=== PATIENT | female | born 1990 | race Caucasian/White ===

== ENCOUNTER 2019-01-18 15:26 | Emergency (ER) | payer MEDICAID ==
[~2019-01-18] VITALS: Ht 157.5 cm; Wt 82.0 kg
[2019-01-18] MEDS ORDERED: SODIUM CHLORIDE 0.9% 1,000 ML IV ONE (15:50)
[2019-01-18 16:16] LABS: BASOPHILS % 0.2 % (0.0-2.0); HEMATOCRIT. 37.5 % (36.0-48.0); HEMOGLOBIN. 12.8 g/dL (12.0-16.0); LYMPHOCYTES % 25.1 % (20.0-50.0); MEAN CORPUSCULAR HEMOGLOBIN 28.3 pg (28.0-32.0); MEAN CORPUSCULAR VOLUME 82.9 fL (81.0-99.0); MEAN PLATELET VOLUME 8.1 fl (7.4-10.4); MONOCYTES % 5.9 % (2.0-8.0); NEUTROPHILS % 64.8 % (40.0-76.0); PLATELET 290 x1000/uL (130-400); RED BLOOD CELL COUNT 4.53 mill/uL (4.2-5.4); RED CELL DISTRIBUTION WIDTH 13.9 % (11.6-14.6)
[2019-01-18 16:18] LABS: HCG SCREEN NEGATIVE
[2019-01-18 16:20] LABS: CHLORIDE 111 mEq/L (98-107)
[2019-01-18 16:21] LABS: INR 1.1; PROTHROMBIN TIME 11.2 sec (9.6-11.0)
[2019-01-18 17:34] LABS: CLARITY URINE CLEAR (CLEAR); COLOR URINE YELLOW (YELLOW); KETONES URINE NEGATIVE (NEGATIVE); LEUKOCYTE ESTERASE URINE TRACE (NEGATIVE); NITRITE URINE NEGATIVE (NEGATIVE); OCCULT BLOOD URINE TRACE (NEGATIVE); PH URINE 5.5 (4.5-8.0); PROTEIN URINE NEGATIVE (NEGATIVE); SPECIFIC GRAVITY URINE 1.007 (1.005-1.030); UROBILINOGEN URINE 0.2 E.U./dL (0.2-1.0)
[2019-01-18] MEDS ORDERED: IBUPROFEN 400MG TABLET PO ONE (19:00)
[2019-01-18 19:24] VITALS: BP 128/79
[2019-01-18] MEDS ORDERED: IOHEXOL-350 100 ML BOTTLE ONE (19:38)
== END 2019-01-18 19:20 | disposition home or self-care (01) ==
LOC: ER 15:26
DX: R42 Dizziness and giddiness (principal); G43.909 Migraine, unspecified, not intractable, without status migrainosus; R11.0 Nausea; Z98.890 Other specified postprocedural states
CPT/HCPCS: 36415; 70496; 70498; 80053; 81003; 84484; 84703; 85025; 85610; 93005; 96360; 96361; 99284; J7030; Q9967

== ENCOUNTER 2019-11-07 13:58 | Inpatient (IN) | payer OTHER, MEDICAID ==
[~2019-11-07] VITALS: Ht 149.9 cm; Wt 78.0 kg
[2019-11-07] MEDS ORDERED: MORPHINE SULFATE 4 MG/ML CPJ (NOT FOR IM USE) IV ONE ×2 (15:00→18:15)
[2019-11-07 15:21] LABS: BASOPHILS % 0.5 % (0.0-2.0); EOSINOPHILS % 3.8 % (0.0-5.0); HEMATOCRIT. 38.3 % (36.0-48.0); LYMPHOCYTES % 23.7 % (20.0-50.0); MEAN CORPUSCULAR HEMOGLOBIN 28.1 pg (28.0-32.0); MEAN CORPUSCULAR VOLUME 82.7 fL (81.0-99.0); MEAN PLATELET VOLUME 8.2 fl (7.4-10.4); MONOCYTES % 7.4 % (2.0-8.0); NEUTROPHILS % 64.6 % (40.0-76.0); PLATELET 257 x1000/uL (130-400); RED BLOOD CELL COUNT 4.63 mill/uL (4.2-5.4); RED CELL DISTRIBUTION WIDTH 13.9 % (11.6-14.6)
[2019-11-07 15:28] LABS: CHLORIDE 109 mEq/L (98-107)
[2019-11-07] MEDS ORDERED: IOHEXOL-350 100 ML BOTTLE ONE (17:34)
[2019-11-07] MEDS ORDERED: CLONIDINE 0.1MG TABLET PO PRN (22:30)
[2019-11-07] MEDS ORDERED: ONDANSETRON HCL 4MG/2ML INJ IV PRN (22:30)
[2019-11-07] MEDS ORDERED: ZOLPIDEM TARTRATE 5MG TABLET PO PRN (22:30)
[2019-11-07] MEDS ORDERED: ACETAMINOPHEN 325MG TABLET PO PRN ×2 (22:30)
[2019-11-07 23:20] VITALS: BP_SYST 102; BP_SYST 138; BP_DIAS 69
[2019-11-08] MEDS ORDERED: MECL-159 PO (00:23)
[2019-11-08] MEDS ORDERED: KETOROLAC 30MG/ML VIAL IV PRN (02:15)
[2019-11-08 04:00] VITALS: BP 118/65
[2019-11-08] MEDS: SODIUM CHLORIDE 0.9% INJ 3ML FLUSH IVF SCH ×3 (06:22→22:10)
[2019-11-08] MEDS: MORPHINE SULFATE 4 MG/ML CPJ (NOT FOR IM USE) IV PRN ×2 (10:14→16:53)
[2019-11-08 13:14] VITALS: BP 107/58
[2019-11-08 15:26] VITALS: BP 124/59
[2019-11-08 20:00] VITALS: BP 117/70
[2019-11-08] MEDS: KETOROLAC 30MG/ML VIAL IV PRN (21:23)
[2019-11-09] VITALS: BP 110/65
[2019-11-09 04:00] VITALS: BP 106/61
[2019-11-09] MEDS: SODIUM CHLORIDE 0.9% INJ 3ML FLUSH IVF SCH ×3 (06:51→21:30)
[2019-11-09 06:56] LABS: CHLORIDE 106 mEq/L (98-107)
[2019-11-09 07:16] LABS: BASOPHILS % 0.3 % (0.0-2.0); EOSINOPHILS % 7.6 % (0.0-5.0); HEMATOCRIT. 39.7 % (36.0-48.0); HEMOGLOBIN. 13.6 g/dL (12.0-16.0); LYMPHOCYTES % 25.2 % (20.0-50.0); MEAN CORPUSCULAR HEMOGLOBIN 28.3 pg (28.0-32.0); MEAN CORPUSCULAR VOLUME 82.5 fL (81.0-99.0); MEAN PLATELET VOLUME 8.3 fl (7.4-10.4); MONOCYTES % 7.7 % (2.0-8.0); NEUTROPHILS % 59.2 % (40.0-76.0); PLATELET 268 x1000/uL (130-400); RED BLOOD CELL COUNT 4.82 mill/uL (4.2-5.4); RED CELL DISTRIBUTION WIDTH 13.8 % (11.6-14.6)
[2019-11-09 08:00] VITALS: BP 117/70
[2019-11-09] MEDS: MORPHINE SULFATE 4 MG/ML CPJ (NOT FOR IM USE) IV PRN ×2 (09:04→17:03)
[2019-11-09 12:00] VITALS: BP 107/66
[2019-11-09] MEDS: DIPHENHYDRAMINE 50MG/ML VIAL IV PRN (12:59)
[2019-11-09 16:00] VITALS: BP 106/68
[2019-11-09 20:00] VITALS: BP 129/75
[2019-11-09] MEDS: KETOROLAC 30MG/ML VIAL IV PRN (22:56)
[2019-11-10] VITALS: BP 116/65
[2019-11-10 04:00] VITALS: BP 119/64
[2019-11-10] MEDS: SODIUM CHLORIDE 0.9% INJ 3ML FLUSH IVF SCH ×3 (05:00→21:55)
[2019-11-10] MEDS: MORPHINE SULFATE 4 MG/ML CPJ (NOT FOR IM USE) IV PRN ×3 (05:01→21:56)
[2019-11-10 08:00] VITALS: BP 105/57
[2019-11-10] MEDS: DIPHENHYDRAMINE 50MG/ML VIAL IV PRN ×2 (08:42→18:49)
[2019-11-10 12:00] VITALS: BP 107/63
[2019-11-10] MEDS: KETOROLAC 30MG/ML VIAL IV PRN (15:43)
[2019-11-10 16:00] VITALS: BP 109/68
[2019-11-10] MEDS: MECLIZINE 25MG TABLET PO PRN (18:49)
[2019-11-10] MEDS ORDERED: IBUPROFEN 600MG TABLET PO PRN (19:45)
[2019-11-10 20:00] VITALS: BP 113/75
[2019-11-11] VITALS (7 sets, daily range): BP systolic 104–127; BP diastolic 61–77
[2019-11-11] MEDS: DIPHENHYDRAMINE 50MG/ML VIAL IV PRN ×2 (03:00→21:32)
[2019-11-11] MEDS: MECLIZINE 25MG TABLET PO PRN ×2 (03:00→21:32)
[2019-11-11] MEDS: SODIUM CHLORIDE 0.9% INJ 3ML FLUSH IVF SCH ×3 (05:25→21:03)
[2019-11-11] MEDS: MORPHINE SULFATE 4 MG/ML CPJ (NOT FOR IM USE) IV PRN (10:10)
[2019-11-11] MEDS: KETOROLAC 30MG/ML VIAL IV PRN (15:01)
[2019-11-11] MEDS ORDERED: REGADENOSON 0.4 MG/5 ML IV NR (18:15)
[2019-11-11 20:01] LABS: *AMPHETAMINES SCREEN URINE NEGATIVE (NEGATIVE); *BARBITURATES SCREEN URINE NEGATIVE (NEGATIVE); *BENZODIAZEPINES SCREEN URINE NEGATIVE (NEGATIVE); *COCAINE SCREEN URINE NEGATIVE (NEGATIVE); METHADONE URINE SCREEN NEGATIVE (NEGATIVE)
[2019-11-11 20:02] LABS: CANNABINOID URINE SCREEN NEGATIVE (NEGATIVE); PHENCYCLIDINE URINE SCREEN NEGATIVE (NEGATIVE)
[2019-11-11 20:04] LABS: OPIATES URINE SCREEN PRESUMTIVE POSITIVE (NEGATIVE)
[2019-11-12] VITALS: BP 107/54
[2019-11-12 03:44] VITALS: BP 125/76
[2019-11-12] MEDS: MORPHINE SULFATE 4 MG/ML CPJ (NOT FOR IM USE) IV PRN ×2 (03:46→23:12)
[2019-11-12] MEDS: SODIUM CHLORIDE 0.9% INJ 3ML FLUSH IVF SCH ×3 (05:37→23:11)
[2019-11-12 07:04] LABS: HCG SCREEN NEGATIVE
[2019-11-12 08:00] VITALS: BP 112/70
[2019-11-12] MEDS ORDERED: REGADENOSON 0.4 MG/5 ML IV NR (09:30)
[2019-11-12] MEDS: MECLIZINE 25MG TABLET PO PRN ×2 (10:06→20:29)
[2019-11-12] MEDS: DIPHENHYDRAMINE 50MG/ML VIAL IV PRN ×3 (10:06→20:29)
[2019-11-12 10:57] LABS: BASOPHILS % 0.9 % (0.0-2.0); EOSINOPHILS % 6.1 % (0.0-5.0); HEMATOCRIT. 40.2 % (36.0-48.0); HEMOGLOBIN. 13.7 g/dL (12.0-16.0); LYMPHOCYTES % 23.8 % (20.0-50.0); MEAN CORPUSCULAR HEMOGLOBIN 28.2 pg (28.0-32.0); MEAN CORPUSCULAR VOLUME 82.9 fL (81.0-99.0); MEAN PLATELET VOLUME 8.3 fl (7.4-10.4); MONOCYTES % 6.2 % (2.0-8.0); PLATELET 268 x1000/uL (130-400); RED BLOOD CELL COUNT 4.85 mill/uL (4.2-5.4); RED CELL DISTRIBUTION WIDTH 14.2 % (11.6-14.6)
[2019-11-12 11:11] LABS: CHLORIDE 111 mEq/L (98-107)
[2019-11-12 12:00] VITALS: BP 95/76
[2019-11-12 16:00] VITALS: BP 123/67
[2019-11-12 20:00] VITALS: BP 108/75
[2019-11-13] VITALS: BP 115/67
[2019-11-13 04:00] VITALS: BP 109/60
[2019-11-13] MEDS: DIPHENHYDRAMINE 50MG/ML VIAL IV PRN ×2 (05:42→21:51)
[2019-11-13] MEDS: SODIUM CHLORIDE 0.9% INJ 3ML FLUSH IVF SCH ×3 (05:42→21:51)
[2019-11-13 06:26] LABS: BASOPHILS % 0.4 % (0.0-2.0); EOSINOPHILS % 5.4 % (0.0-5.0); HEMATOCRIT. 38.3 % (36.0-48.0); LYMPHOCYTES % 25.7 % (20.0-50.0); MEAN CORPUSCULAR HEMOGLOBIN 28.2 pg (28.0-32.0); MEAN PLATELET VOLUME 8.9 fl (7.4-10.4); MONOCYTES % 6.4 % (2.0-8.0); NEUTROPHILS % 62.1 % (40.0-76.0); PLATELET 263 x1000/uL (130-400); RED BLOOD CELL COUNT 4.61 mill/uL (4.2-5.4); RED CELL DISTRIBUTION WIDTH 14.2 % (11.6-14.6)
[2019-11-13 06:53] LABS: CHLORIDE 109 mEq/L (98-107)
[2019-11-13 08:00] VITALS: BP 104/66
[2019-11-13] MEDS ORDERED: POTASSIUM CHLORIDE 20MEQ TABLET SR PO NR (11:30)
[2019-11-13 12:00] VITALS: BP 102/58
[2019-11-13] MEDS: MORPHINE SULFATE 4 MG/ML CPJ (NOT FOR IM USE) IV PRN (12:26)
[2019-11-13 16:00] VITALS: BP 103/46
[2019-11-13] MEDS: MECLIZINE 25MG TABLET PO PRN (21:51)
[2019-11-14] VITALS: BP 108/61
[2019-11-14] MEDS: MORPHINE SULFATE 4 MG/ML CPJ (NOT FOR IM USE) IV PRN (03:59)
[2019-11-14 04:00] VITALS: BP 112/65
[2019-11-14] MEDS: SODIUM CHLORIDE 0.9% INJ 3ML FLUSH IVF SCH ×2 (05:13→11:15)
[2019-11-14 05:36] LABS: BASOPHILS % 0.5 % (0.0-2.0); EOSINOPHILS % 4.4 % (0.0-5.0); HEMATOCRIT. 40.1 % (36.0-48.0); HEMOGLOBIN. 13.6 g/dL (12.0-16.0); LYMPHOCYTES % 20.9 % (20.0-50.0); MEAN CORPUSCULAR HEMOGLOBIN 28.1 pg (28.0-32.0); MEAN CORPUSCULAR VOLUME 82.7 fL (81.0-99.0); MEAN PLATELET VOLUME 8.7 fl (7.4-10.4); NEUTROPHILS % 68.2 % (40.0-76.0); PLATELET 262 x1000/uL (130-400); RED BLOOD CELL COUNT 4.85 mill/uL (4.2-5.4); RED CELL DISTRIBUTION WIDTH 14.1 % (11.6-14.6)
[2019-11-14 05:48] LABS: CHLORIDE 110 mEq/L (98-107)
[2019-11-14] MEDS ORDERED: REGADENOSON 0.4 MG/5 ML IV ONE ×2 (06:00→08:26)
[2019-11-14 08:00] VITALS: BP 121/76
[2019-11-14] MEDS: MECLIZINE 25MG TABLET PO PRN (11:13)
[2019-11-14] MEDS: DIPHENHYDRAMINE 50MG/ML VIAL IV PRN (11:14)
[2019-11-14 12:20] VITALS: BP 111/69
[2019-11-14 13:26] VITALS: BP 110/74
== END 2019-11-14 14:50 | disposition home or self-care (01) | DRG 313 ==
LOC: ER 14:21 → 7WST 20:31 → EDBEDREQ 21:37 → ENRESERV 21:42 → 6WST 11-13 04:18
PROVIDERS: ADMIT Internal Medicine; ATTEND Internal Medicine
DX: R07.89 Other chest pain (principal); J45.909 Unspecified asthma, uncomplicated; D72.829 Elevated white blood cell count, unspecified; R42 Dizziness and giddiness; Z20.828 Contact with and (suspected) exposure to other viral communicable diseases; I08.0 Rheumatic disorders of both mitral and aortic valves; G43.909 Migraine, unspecified, not intractable, without status migrainosus; Z88.6 Allergy status to analgesic agent
CPT/HCPCS: 36415; 71045; 71275; 78452; 80048; 80053; 80305; 83880; 84484; 84703; 85025; 93005; 93017; 93306; 99285; A9500; J1200; J1885; J2270; J2785; J8597; Q9967; U0003-CS

== ENCOUNTER 2020-08-29 13:32 | Emergency (ER) | payer BC, MEDICAID ==
[~2020-08-29] VITALS: Ht 162.6 cm; Wt 78.0 kg
[~2020-08-29 13:32] MED LIST: MECL-159 PO
[2020-08-29] MEDS ORDERED: KETOROLAC 30MG/ML VIAL IV STA (13:43)
[2020-08-29] MEDS ORDERED: ONDANSETRON HCL 4MG/2ML INJ IV STA (13:43)
[2020-08-29] MEDS ORDERED: MECLIZINE 25MG TABLET PO ONE (13:45)
[2020-08-29] MEDS ORDERED: SODIUM CHLORIDE 0.9% 1,000 ML IV ONE (13:45)
[2020-08-29 14:35] LABS: BASOPHILS % 0.4 % (0.0-2.0); EOSINOPHILS % 4.9 % (0.0-5.0); HEMATOCRIT. 39.6 % (36.0-48.0); MEAN CORPUSCULAR HEMOGLOBIN 26.8 pg (28.0-32.0); MEAN CORPUSCULAR VOLUME 81.8 fL (81.0-99.0); MEAN PLATELET VOLUME 8.2 fl (7.4-10.4); MONOCYTES % 6.7 % (2.0-8.0); PLATELET 299 x1000/uL (130-400); RED BLOOD CELL COUNT 4.83 mill/uL (4.2-5.4); RED CELL DISTRIBUTION WIDTH 13.3 % (11.6-14.6)
[2020-08-29 14:39] LABS: CHLORIDE 107 mEq/L (98-107)
[2020-08-29 15:01] LABS: CLARITY URINE CLEAR (CLEAR); COLOR URINE YELLOW (YELLOW); KETONES URINE NEGATIVE (NEGATIVE); LEUKOCYTE ESTERASE URINE TRACE (NEGATIVE); NITRITE URINE NEGATIVE (NEGATIVE); OCCULT BLOOD URINE NEGATIVE (NEGATIVE); PH URINE 5.5 (4.5-8.0); PROTEIN URINE NEGATIVE (NEGATIVE); SPECIFIC GRAVITY URINE 1.006 (1.005-1.030); UROBILINOGEN URINE 0.2 E.U./dL (0.2-1.0)
[2020-08-29] MEDS ORDERED: ACETAMINOPHEN 325MG TABLET PO ONE (17:00)
[2020-08-29] MEDS ORDERED: SUMATRIPTAN SUCCINATE 6MG/0.5ML VIAL SUBCUT ONE (17:00)
[2020-08-29] MEDS ORDERED: METO-293 PO (17:36)
[2020-08-29] MEDS ORDERED: MECL-159 PO (17:36)
[2020-08-29 18:00] VITALS: BP 129/68
== END 2020-08-29 18:00 | disposition home or self-care (01) ==
LOC: ER 13:32
DX: H81.399 Other peripheral vertigo, unspecified ear (principal); G43.909 Migraine, unspecified, not intractable, without status migrainosus; Z88.6 Allergy status to analgesic agent
CPT/HCPCS: 36415; 70450; 71045; 80053; 81003; 81025; 85025; 96361; 96372; 96374; 96375; 99285; J1885; J2405; J3030; J7030; J8597